=== PATIENT | female | born 1945 | race Caucasian/White ===

== ENCOUNTER 2016-04-20 08:15 | Outpatient (RCR) | payer MEDICARE, BC ==
[2016-03-14 10:44] VITALS: BP 156/75
[~2016-04-20 08:15] MED LIST: AMBIEN10 MG; AMLOPIDINE PO; ATIVAN 0.50.5 MG/TAB PO; BUPROPION300 MG PO; CALCIUM WITH D1 CTB PO; CEFTIN500 MG PO; CIPRO250 M1 PO; COGENTIN0.5 MG PO; GABAPENTIN100 M1 PO; INDERAL10 MG PO; LEADER MELATONIN5 MG PO; LEXAPRO5 MG PO; LITHIUM 30300 MG/CAP PO; LITHIUM CA150 MG/CAP PO; LITHIUM CARBON450 MG PO; MELOXICAM15 MG PO; NEURONTIN100 M1 PO; NEXIUM 20MG CAP20 MG PO; OMEGA-31000 MG PO; PAIN RELIEVER650 MG PO; PREDNISONE20 M1 PO; PROTONIX TR40 M1 PO; PROZAC40 MG PO; RISPERDAL 1M1 MG/TAB PO; RISPERDAL1 MG PO; SEROQUEL50 MG PO; SYNTHROID0.1 MG PO; VITAMIN D31000 I1 PO; WELLBUTRIN XL150 MG PO; WELLBUTRIN100 MG PO; ZOFRAN ODT4 MG PO
== END 2016-05-18 13:11 ==
LOC: OPPGERO 08:15
DX: F42.9 Obsessive-compulsive disorder, unspecified (principal); F41.1 Generalized anxiety disorder; F31.9 Bipolar disorder, unspecified

== ENCOUNTER 2016-05-19 08:34 | Outpatient (RCR) | payer MEDICARE, BC ==
[2016-03-14 10:44] VITALS: BP 156/75
== END 2016-06-15 10:19 ==
LOC: OPPGERO 08:34
DX: F42.9 Obsessive-compulsive disorder, unspecified (principal); F41.1 Generalized anxiety disorder; F31.9 Bipolar disorder, unspecified

== ENCOUNTER → 2016-05-26 | Outpatient (CLI) | payer MEDICARE, BC ==
[~2016-05-26] MED LIST changes: +CARAFATE 1GM1 G PO; +MECLIZINE PO
== END ==
LOC: MAMMO 13:38
DX: Z12.31 Encounter for screening mammogram for malignant neoplasm of breast (principal)
CPT/HCPCS: G0202

== ENCOUNTER → 2016-06-10 | Outpatient (CLI) | payer MEDICARE, BC | LOC: MAMMO 13:26 | DX: N63 Unspecified lump in breast (principal) ==

== ENCOUNTER 2016-06-16 07:12 | Outpatient (RCR) | payer MEDICARE, BC ==
[2016-03-14 10:44] VITALS: BP 156/75
[~2016-06-16 07:12] MED LIST changes: -CARAFATE 1GM1 G PO; -MECLIZINE PO
== END 2016-07-16 15:01 ==
LOC: OPPGERO 07:12
DX: F42.9 Obsessive-compulsive disorder, unspecified (principal); F41.1 Generalized anxiety disorder; F31.9 Bipolar disorder, unspecified

== ENCOUNTER → 2016-07-10 | Outpatient (CLI) | payer MEDICARE, BC ==
[~2016-07-10] MED LIST changes: +CARAFATE 1GM1 G PO; +MECLIZINE PO
== END ==
LOC: LAB 10:11
DX: Z00.00 Encounter for general adult medical examination without abnormal findings (principal); E03.4 Atrophy of thyroid (acquired); I51.9 Heart disease, unspecified; Z13.220 Encounter for screening for lipoid disorders

== ENCOUNTER 2016-07-17 09:00 | Outpatient (RCR) | payer MEDICARE, BC ==
[2016-03-14 10:44] VITALS: BP 156/75
[~2016-07-17 09:00] MED LIST changes: -CARAFATE 1GM1 G PO; -MECLIZINE PO
== END 2016-08-13 15:26 | disposition still patient (30) ==
LOC: OPPGERO 09:00
DX: F42.9 Obsessive-compulsive disorder, unspecified (principal); F41.1 Generalized anxiety disorder; F31.9 Bipolar disorder, unspecified

== ENCOUNTER → 2016-07-23 | Outpatient (CLI) | payer MEDICARE, BC ==
[~2016-07-23] MED LIST changes: +CARAFATE 1GM1 G PO; +MECLIZINE PO
== END ==
LOC: LAB 12:59
DX: R53.1 Weakness (principal)

== ENCOUNTER → 2016-07-26 | Outpatient (CLI) | payer MEDICARE, BC ==
[2016-03-14 10:44] VITALS: BP 156/75
== END ==
LOC: LAB 12:46
DX: R53.1 Weakness (principal)

== ENCOUNTER 2016-08-16 08:08 | Outpatient (RCR) | payer MEDICARE, BC ==
[2016-03-14 10:44] VITALS: BP 156/75
[~2016-08-16 08:08] MED LIST changes: -CARAFATE 1GM1 G PO; -MECLIZINE PO
== END 2016-09-15 16:47 ==
LOC: OPPGERO 08:08
DX: F42.9 Obsessive-compulsive disorder, unspecified (principal); F41.1 Generalized anxiety disorder; F31.9 Bipolar disorder, unspecified

== ENCOUNTER 2016-09-16 11:01 | Outpatient (RCR) | payer MEDICARE, BC ==
[2016-03-14 10:44] VITALS: BP 156/75
== END 2016-10-15 15:44 ==
LOC: OPPGERO 11:01
DX: F42.9 Obsessive-compulsive disorder, unspecified (principal); F41.1 Generalized anxiety disorder; F31.9 Bipolar disorder, unspecified

== ENCOUNTER → 2016-10-06 | Outpatient (CLI) | payer MEDICARE, BC ==
[2016-03-14 10:44] VITALS: BP 156/75
[~2016-10-06] MED LIST changes: +CARAFATE 1GM1 G PO; +MECLIZINE PO
== END ==
LOC: RAD 15:08
DX: R07.81 Pleurodynia (principal); M25.531 Pain in right wrist; M25.561 Pain in right knee; R91.8 Other nonspecific abnormal finding of lung field; M17.11 Unilateral primary osteoarthritis, right knee

== ENCOUNTER 2016-10-18 08:27 | Outpatient (RCR) | payer MEDICARE, BC ==
[2016-03-14 10:44] VITALS: BP 156/75
[~2016-10-18 08:27] MED LIST changes: -CARAFATE 1GM1 G PO; -MECLIZINE PO
[2016-11-08] MEDS ORDERED: CARAFATE 1GM1 G PO (14:00)
[2016-11-08] MEDS ORDERED: MECLIZINE PO (16:10)
== END 2016-11-15 14:58 | disposition still patient (30) ==
LOC: OPPGERO 08:27
DX: F42.9 Obsessive-compulsive disorder, unspecified (principal); F41.1 Generalized anxiety disorder; F31.9 Bipolar disorder, unspecified

== ENCOUNTER 2016-11-08 12:33 | Emergency (ER) | payer MEDICARE, BC ==
[~2016-11-08] VITALS: Wt 80.5 kg
[2016-11-08] MEDS ORDERED: CARAFATE 1GM1 G PO (14:00)
[2016-11-08] MEDS ORDERED: MECLIZINE PO (16:10)
[2016-11-08 16:36] VITALS: BP 166/82
== END 2016-11-08 16:41 | disposition home or self-care (01) ==
LOC: ED 12:33
DX: H81.10 Benign paroxysmal vertigo, unspecified ear (principal); E86.0 Dehydration; R42 Dizziness and giddiness; I10 Essential (primary) hypertension; F41.9 Anxiety disorder, unspecified; F32.9 Major depressive disorder, single episode, unspecified
CPT/HCPCS: J7030; J7120

== ENCOUNTER 2016-11-16 08:42 | Outpatient (RCR) | payer MEDICARE, BC ==
[~2016-11-16 08:42] MED LIST changes: +CARAFATE 1GM1 G PO; +MECLIZINE PO
== END 2016-12-16 14:29 | disposition still patient (30) ==
LOC: OPPGERO 08:42
DX: F42.9 Obsessive-compulsive disorder, unspecified (principal); F41.1 Generalized anxiety disorder; F31.9 Bipolar disorder, unspecified

== ENCOUNTER → 2016-11-29 | Outpatient (CLI) | payer MEDICARE, BC ==
[2016-11-08 16:36] VITALS: BP 166/82
== END ==
LOC: RAD 13:00
DX: D32.9 Benign neoplasm of meninges, unspecified (principal)
CPT/HCPCS: A9585

== ENCOUNTER 2016-12-17 07:49 | Outpatient (RCR) | payer MEDICARE, BC | END 2017-01-14 15:12 | LOC: OPPGERO 07:49 | DX: F42.9 Obsessive-compulsive disorder, unspecified (principal); F41.1 Generalized anxiety disorder; F31.9 Bipolar disorder, unspecified ==

== ENCOUNTER → 2017-01-05 | Outpatient (CLI) | payer MEDICARE, BC | LOC: RAD 12:36 | DX: J98.11 Atelectasis (principal) ==

== ENCOUNTER 2017-01-09 11:48 | Emergency (ER) | payer MEDICARE, BC ==
[~2017-01-09] VITALS: Ht 172.7 cm; Wt 77.3 kg
[2017-01-09 12:43] VITALS: BP 136/72
== END 2017-01-09 12:32 | disposition home or self-care (01) ==
LOC: ED 11:48
DX: S51.812A Laceration without foreign body of left forearm, initial encounter (principal); W19.XXXA Unspecified fall, initial encounter; Y92.22 Religious institution as the place of occurrence of the external cause; F31.9 Bipolar disorder, unspecified; I10 Essential (primary) hypertension
CPT/HCPCS: 90715

== ENCOUNTER → 2017-01-11 | Outpatient (CLI) | payer MEDICARE, BC ==
[2017-01-09 12:43] VITALS: BP 136/72
== END ==
LOC: RAD 12:25
DX: R91.8 Other nonspecific abnormal finding of lung field (principal)
CPT/HCPCS: Q9967

== ENCOUNTER 2017-01-16 09:00 | Outpatient (RCR) | payer MEDICARE, BC | END 2017-02-15 16:14 | LOC: OPPGERO 09:00 | DX: F42.9 Obsessive-compulsive disorder, unspecified (principal); F41.1 Generalized anxiety disorder; F31.9 Bipolar disorder, unspecified ==

== ENCOUNTER 2017-02-16 08:37 | Outpatient (RCR) | payer MEDICARE, BC | END 2017-03-17 13:02 | LOC: OPPGERO 08:37 | DX: F42.9 Obsessive-compulsive disorder, unspecified (principal); F41.1 Generalized anxiety disorder; F31.9 Bipolar disorder, unspecified ==

== ENCOUNTER → 2017-06-21 | Outpatient (CLI) | payer MEDICARE, BC ==
[2017-06-21 11:08] LABS: ALBUMIN 3.9 g/dL (3.5-5.0); BUN/CREATININE RATIO 17.1 (6.0-26.0); CALCIUM 9.6 mg/dL (8.4-10.2); POTASSIUM 4.3 mmol/L (3.6-5.0); TOTAL BILIRUBIN 0.5 mg/dL (0.2-1.3); TOTAL PROTEIN 6.8 g/dL (6.3-8.2)
== END ==
LOC: LAB 10:32
PROVIDERS: Family Medicine
DX: Z51.81 Encounter for therapeutic drug level monitoring (principal); Z79.899 Other long term (current) drug therapy

== ENCOUNTER 2017-07-20 11:37 | Emergency (ER) | payer MEDICARE, BC ==
[~2017-07-20] VITALS: Ht 172.7 cm; Wt 80.0 kg
[~2017-07-20 11:37] MED LIST changes: +LEXAPRO20 M1 PO; -LEXAPRO5 MG PO; -LITHIUM CA150 MG/CAP PO; +LITHIUM CARB300 MG PO; -SYNTHROID0.1 MG PO; +SYNTHROID112 MCG PO
[2017-07-20 12:35] LABS: EOS # 0.2 (0.04-0.40); EOS % 2.4 % (1.0-5.0); HEMATOCRIT 41.7 % (37.0-47.0); HEMOGLOBIN 12.6 g/dL (12.5-16.0); LYMPH# 1.7 (1.50-4.00); MEAN CELL VOLUME 94 fl (78-100); MEAN CORPUSCULAR HEMOGLOBIN 28 pg (27-31); MEAN CORPUSCULAR HGB CONC 30 g/dL (33-37); MEAN PLATELET VOLUME 9.6 fl (7.4-10.4); MONO # 0.6 (0.20-0.80); NEU # 5.1 (1.40-6.50); PLATELET COUNT 298 K/mm3 (130-400); RED BLOOD COUNT 4.44 M/mm3 (4.10-5.30); RED CELL DISTRIBUTION WIDTH 13.4 % (11.5-14.5); WHITE BLOOD COUNT 7.6 K/mm3 (4.8-10.8)
[2017-07-20] MEDS ORDERED: WELLBUTRIN XL150 M2 PO (12:49)
[2017-07-20 12:50] LABS: ALBUMIN 3.8 g/dL (3.5-5.0); ALT/SGPT 30 U/L (9-52); AST-SGOT 37 U/L (14-36); BUN/CREATININE RATIO 22.7 (6.0-26.0); CALCIUM 9.6 mg/dL (8.4-10.2); CARBON DIOXIDE 32 mmol/L (22-30); GLUCOSE 112 mg/dL (65-105); PARTIAL THROMBOPLASTIN TIME 22.7 SECONDS (21.0-32.0); POTASSIUM 4.4 mmol/L (3.6-5.0); PROTHROMBIN TIME 9.3 SECONDS (9.0-12.0); SODIUM 146 mmol/L (137-145); TOTAL BILIRUBIN 0.5 mg/dL (0.2-1.3); TOTAL PROTEIN 6.9 g/dL (6.3-8.2)
[2017-07-20 13:59] LABS: URINE APPEARANCE HAZY; URINE BILIRUBIN NEGATIVE (NEGATIVE); URINE BLOOD NEGATIVE (NEGATIVE); URINE COLOR YELLOW; URINE GLUCOSE NEGATIVE (NEGATIVE); URINE KETONE NEGATIVE (NEGATIVE); URINE LEUKOCYTE ESTERASE 1+ (NEGATIVE); URINE MUCUS PRESENT (NOT PRESENT); URINE NITRATE NEGATIVE (NEGATIVE); URINE PROTEIN(semi-quant) TRACE mg/dL (NEGATIVE); URINE UROBILINOGEN NORMAL (NORMAL); URINE WBC 16-30 /hpf (0-3)
[2017-07-20 15:06] VITALS: BP 159/74
== END 2017-07-20 15:20 | disposition home or self-care (01) ==
LOC: ED 11:37
PROVIDERS: Nurse Practitioner
DX: R53.81 Other malaise (principal); R51 Headache; I10 Essential (primary) hypertension; F32.9 Major depressive disorder, single episode, unspecified; F41.9 Anxiety disorder, unspecified; E03.9 Hypothyroidism, unspecified; Z87.891 Personal history of nicotine dependence; G47.00 Insomnia, unspecified

== ENCOUNTER 2017-08-21 18:57 | Emergency (ER) | payer MEDICARE, BC ==
[~2017-08-21] VITALS: Ht 172.7 cm; Wt 77.3 kg
[~2017-08-21 18:57] MED LIST changes: +WELLBUTRIN XL150 M2 PO
[2017-08-21 19:02] VITALS: BP 161/84
[2017-08-21] MEDS ORDERED: PANTOPRAZOLE SO20 M1 PO (20:08)
[2017-08-21] MEDS ORDERED: NYSTATIN UD5 ML/CUP PO (20:08)
== END 2017-08-21 20:28 | disposition home or self-care (01) ==
LOC: ED 18:57
DX: K14.6 Glossodynia (principal); R13.10 Dysphagia, unspecified; F31.9 Bipolar disorder, unspecified; F41.9 Anxiety disorder, unspecified

== ENCOUNTER 2017-09-06 09:27 | Outpatient (RCR) | payer MEDICARE, BC ==
[~2017-09-06 09:27] MED LIST changes: +NYSTATIN UD5 ML/CUP PO; +PANTOPRAZOLE SO20 M1 PO
== END 2017-09-15 13:31 ==
LOC: OPPGERO 09:27
DX: F32.1 Major depressive disorder, single episode, moderate (principal); F42.9 Obsessive-compulsive disorder, unspecified; F41.1 Generalized anxiety disorder; E03.9 Hypothyroidism, unspecified; G62.9 Polyneuropathy, unspecified; G47.00 Insomnia, unspecified; D32.0 Benign neoplasm of cerebral meninges; Z79.899 Other long term (current) drug therapy

== ENCOUNTER 2017-09-16 08:07 | Outpatient (RCR) | payer MEDICARE, BC | END 2017-10-14 13:03 | LOC: OPPGERO 08:07 | DX: F32.1 Major depressive disorder, single episode, moderate (principal); F42.9 Obsessive-compulsive disorder, unspecified; F41.1 Generalized anxiety disorder; D32.0 Benign neoplasm of cerebral meninges; Z59.6 Low income; Z63.79 Other stressful life events affecting family and household ==

== ENCOUNTER 2017-10-17 09:13 | Outpatient (RCR) | payer MEDICARE, BC | END 2017-11-15 14:15 | disposition home or self-care (01) | LOC: OPPGERO 09:13 | DX: F32.1 Major depressive disorder, single episode, moderate (principal); F41.1 Generalized anxiety disorder; F42.9 Obsessive-compulsive disorder, unspecified; Z63.79 Other stressful life events affecting family and household; Z86.59 Personal history of other mental and behavioral disorders ==

== ENCOUNTER 2017-11-16 08:24 | Outpatient (RCR) | payer MEDICARE, BC ==
[2017-11-18] MEDS ORDERED: PROTONIX TR40 M1 PO (20:55)
[2017-11-18] MEDS ORDERED: SEROQUEL 1100 MG/TAB PO (20:56)
[2017-11-18] MEDS ORDERED: SERTRALINE HYD100 MG PO (20:56)
== END 2017-12-16 13:56 ==
LOC: OPPGERO 08:24
DX: F32.1 Major depressive disorder, single episode, moderate (principal); F42.9 Obsessive-compulsive disorder, unspecified; F41.1 Generalized anxiety disorder; Z59.8 Other problems related to housing and economic circumstances; Z59.9 Problem related to housing and economic circumstances, unspecified; Z86.59 Personal history of other mental and behavioral disorders; D32.0 Benign neoplasm of cerebral meninges; E03.9 Hypothyroidism, unspecified; K21.9 Gastro-esophageal reflux disease without esophagitis; G62.9 Polyneuropathy, unspecified; Z79.899 Other long term (current) drug therapy

== ENCOUNTER 2017-11-18 20:37 | Emergency (ER) | payer MEDICARE, BC ==
[~2017-11-18] VITALS: Ht 172.7 cm; Wt 76.8 kg
[2017-11-18] MEDS ORDERED: PROTONIX TR40 M1 PO (20:55)
[2017-11-18] MEDS ORDERED: SERTRALINE HYD100 MG PO (20:56)
[2017-11-18] MEDS ORDERED: SEROQUEL 1100 MG/TAB PO (20:56)
[2017-11-18 21:45] VITALS: BP 150/82
== END 2017-11-18 21:45 | disposition home or self-care (01) ==
LOC: ED 20:37
DX: F41.8 Other specified anxiety disorders (principal)

== ENCOUNTER → 2017-11-28 | Outpatient (CLI) | payer MEDICARE, BC ==
[2017-11-18 21:45] VITALS: BP 150/82
[~2017-11-28] MED LIST changes: +SEROQUEL 1100 MG/TAB PO; +SERTRALINE HYD100 MG PO
== END ==
LOC: RAD 15:00 → LAB 16:59
DX: D32.0 Benign neoplasm of cerebral meninges (principal)
CPT/HCPCS: A9585

== ENCOUNTER → 2017-12-08 | Outpatient (CLI) | payer MEDICARE, BC ==
[2017-11-18 21:45] VITALS: BP 150/82
== END ==
LOC: RAD 12:29 → LAB 12:29
PROVIDERS: Otolaryngology
DX: H93.A2 Pulsatile tinnitus, left ear (principal)

== ENCOUNTER → 2017-12-09 | Outpatient (CLI) | payer MEDICARE, BC ==
[2017-11-18 21:45] VITALS: BP 150/82
== END ==
LOC: RAD 12:15
DX: H93.A2 Pulsatile tinnitus, left ear (principal)
CPT/HCPCS: Q9967

== ENCOUNTER → 2017-12-14 | Outpatient (CLI) | payer MEDICARE, BC ==
[2017-11-18 21:45] VITALS: BP 150/82
== END ==
LOC: MAMMO 13:00
DX: Z12.31 Encounter for screening mammogram for malignant neoplasm of breast (principal)

== ENCOUNTER → 2018-01-18 | Outpatient (CLI) | payer MEDICARE, BC | LOC: LAB 08:24 | DX: Z51.81 Encounter for therapeutic drug level monitoring (principal); Z79.899 Other long term (current) drug therapy ==

== ENCOUNTER 2018-04-06 08:30 | Outpatient (RCR) | payer MEDICARE, BC | END 2018-04-06 09:00 | disposition home or self-care (01) | LOC: PT 08:30 | DX: R29.898 Other symptoms and signs involving the musculoskeletal system (principal); M54.5 Low back pain; G89.29 Other chronic pain | CPT/HCPCS: G8978-GP; G8979-GP ==

== ENCOUNTER 2018-05-19 16:13 | Emergency (ER) | payer MEDICARE, BC ==
[~2018-05-19] VITALS: Ht 172.7 cm; Wt 77.3 kg
[2018-05-19 16:56] LABS: EOS # 0.2 (0.04-0.40); EOS % 2.3 % (1.0-5.0); HEMATOCRIT 40.3 % (37.0-47.0); HEMOGLOBIN 11.9 g/dL (12.5-16.0); LYMPH# 1.5 (1.50-4.00); MEAN CELL VOLUME 91 fl (78-100); MEAN CORPUSCULAR HEMOGLOBIN 27 pg (27-31); MEAN CORPUSCULAR HGB CONC 30 g/dL (33-37); MEAN PLATELET VOLUME 9.4 fl (7.4-10.4); MONO # 0.5 (0.20-0.80); NEU # 4.8 (1.40-6.50); PLATELET COUNT 277 K/mm3 (130-400); RED BLOOD COUNT 4.42 M/mm3 (4.10-5.30); RED CELL DISTRIBUTION WIDTH 13.5 % (11.5-14.5)
[2018-05-19 17:41] LABS: ALBUMIN 4.1 g/dL (3.5-5.0); AST-SGOT 38 U/L (14-36); CALCIUM 9.6 mg/dL (8.4-10.2); CARBON DIOXIDE 31 mmol/L (22-30); GLUCOSE 111 mg/dL (65-105); POTASSIUM 4.1 mmol/L (3.6-5.0); SODIUM 141 mmol/L (137-145); TOTAL BILIRUBIN 0.4 mg/dL (0.2-1.3); TOTAL PROTEIN 6.7 g/dL (6.3-8.2)
[2018-05-19 17:44] LABS: ALT/SGPT < 3 U/L (9-52)
[2018-05-19] MEDS ORDERED: TIROSINT75 MC1 PO (18:20)
[2018-05-19] MEDS ORDERED: WELLBUTRIN XL150 M2 (18:21)
[2018-05-19] MEDS ORDERED: VALIUM 2MG T2 MG/TAB PO (18:21)
[2018-05-19] MEDS ORDERED: WELLBUTRIN XL150 M2 PO (18:22)
[2018-05-19 19:00] VITALS: BP 158/76
== END 2018-05-19 19:06 | disposition home or self-care (01) ==
LOC: ED 16:13
PROVIDERS: Nurse Practitioner Primary Care
DX: M94.0 Chondrocostal junction syndrome [Tietze] (principal); J69.0 Pneumonitis due to inhalation of food and vomit; K21.9 Gastro-esophageal reflux disease without esophagitis; F41.9 Anxiety disorder, unspecified; F31.9 Bipolar disorder, unspecified; Z98.51 Tubal ligation status; Z90.49 Acquired absence of other specified parts of digestive tract

== ENCOUNTER → 2018-07-31 | Outpatient (CLI) | payer MEDICARE, BC ==
[~2018-07-31] MED LIST changes: +TIROSINT75 MC1 PO; +VALIUM 2MG T2 MG/TAB PO; +WELLBUTRIN XL150 M2
== END ==
LOC: RAD 16:50
DX: M47.817 Spondylosis without myelopathy or radiculopathy, lumbosacral region (principal); M43.8X6 Other specified deforming dorsopathies, lumbar region; M51.26 Other intervertebral disc displacement, lumbar region; M51.36 Other intervertebral disc degeneration, lumbar region

== ENCOUNTER → 2018-08-22 | Outpatient (CLI) | payer MEDICARE, BC ==
[2018-08-22 13:05] LABS: HEMATOCRIT 43.3 % (37.0-47.0); HEMOGLOBIN 13.1 g/dL (12.5-16.0); MEAN PLATELET VOLUME 9.1 fl (7.4-10.4); RED BLOOD COUNT 4.83 M/mm3 (4.10-5.30); WHITE BLOOD COUNT 8.6 K/mm3 (4.8-10.8)
[2018-08-22 15:05] LABS: ALBUMIN 4.5 g/dL (3.4-4.8); CALCIUM 10.4 mg/dL (8.4-10.2); POTASSIUM 4.7 mmol/L (3.5-5.1); TOTAL BILIRUBIN 0.5 mg/dL (0.2-1.2); TOTAL PROTEIN 7.1 g/dL (6.2-8.1)
== END ==
LOC: LAB 12:51
DX: Z79.899 Other long term (current) drug therapy (principal)

== ENCOUNTER → 2018-09-04 | Outpatient (CLI) | payer MEDICARE, BC ==
[2018-09-04 12:28] LABS: EOS # 0.3 (0.04-0.40); EOS % 3.3 % (1.0-5.0); HEMATOCRIT 44.6 % (37.0-47.0); HEMOGLOBIN 13.2 g/dL (12.5-16.0); LYMPH# 1.7 (1.50-4.00); MEAN CELL VOLUME 90 fl (78-100); MEAN CORPUSCULAR HEMOGLOBIN 27 pg (27-31); MEAN CORPUSCULAR HGB CONC 30 g/dL (33-37); MEAN PLATELET VOLUME 9.4 fl (7.4-10.4); MONO # 0.5 (0.20-0.80); PLATELET COUNT 264 K/mm3 (130-400); RED BLOOD COUNT 4.94 M/mm3 (4.10-5.30); RED CELL DISTRIBUTION WIDTH 14.2 % (11.5-14.5); WHITE BLOOD COUNT 7.5 K/mm3 (4.8-10.8)
[2018-09-04 13:10] LABS: ALBUMIN 4.4 g/dL (3.4-4.8); CALCIUM 10.3 mg/dL (8.4-10.2); POTASSIUM 4.7 mmol/L (3.5-5.1); TOTAL BILIRUBIN 0.4 mg/dL (0.2-1.2)
== END ==
LOC: LAB 10:59
PROVIDERS: Family Medicine
DX: E03.9 Hypothyroidism, unspecified (principal); R73.9 Hyperglycemia, unspecified; E55.9 Vitamin D deficiency, unspecified; E66.3 Overweight

== ENCOUNTER 2018-10-17 14:30 | Outpatient (RCR) | payer MEDICARE, BC | END 2018-10-17 15:00 | disposition still patient (30) | LOC: PT 14:30 | DX: M99.73 Connective tissue and disc stenosis of intervertebral foramina of lumbar region (principal); M41.80 Other forms of scoliosis, site unspecified; M54.16 Radiculopathy, lumbar region; M21.42 Flat foot [pes planus] (acquired), left foot ==

== ENCOUNTER → 2018-11-17 | Outpatient (CLI) | payer MEDICARE, BC | LOC: RAD 12:14 | DX: R41.82 Altered mental status, unspecified (principal); R51 Headache ==

== ENCOUNTER → 2019-06-26 | Outpatient (CLI) | payer MEDICARE, BC ==
[2018-12-18 15:00] VITALS: BP 173/78
[~2019-06-26] MED LIST changes: +CENTRUM CHEWAB1 EAC2 PO; +DULOXETINE30 MG PO; +LEVOTHYROXINE112 MCG PO; +LITHIUM CARBON300 M3 PO; +NEURONTIN300 MG/CAP; +OMEPRAZOLE40 MG PO; +PANTOPRAZOLE SO40 MG PO; +PROPRANOLOL ER80 MG PO; +QUETIAPINE FUM200 M1 PO
== END ==
LOC: RAD 08:00
PROVIDERS: Psychiatry & Neurology Vascular Neurology
DX: I67.82 Cerebral ischemia (principal); G20 Parkinson's disease; G31.9 Degenerative disease of nervous system, unspecified; D32.0 Benign neoplasm of cerebral meninges
CPT/HCPCS: A9585

== ENCOUNTER 2019-07-18 07:53 | Outpatient (RCR) | payer MEDICARE, BC ==
[2018-12-18 15:00] VITALS: BP 173/78
[~2019-07-18 07:53] MED LIST changes: -CENTRUM CHEWAB1 EAC2 PO; +DAILY VALUE1 EACH PO; +NEURONTIN300 M1 PO; -QUETIAPINE FUM200 M1 PO
[2019-08-08] MEDS ORDERED: NEURONTIN300 M1 PO (10:27)
[2019-08-08] MEDS ORDERED: LEVOTHYROXIN0.088 MG PO (10:29)
[2019-08-08] MEDS ORDERED: CARBIDOPA/LEVOD1 TAB PO (10:30)
[2019-08-08] MEDS ORDERED: AMLODIPINE BESYL5 MG PO (10:30)
[2019-08-08] MEDS ORDERED: ALPRAZOLAM0.25 MG PO (10:32)
[2019-08-08] MEDS ORDERED: DIFLUCAN150 M1 PO (13:17)
== END 2019-08-16 15:55 | disposition still patient (30) ==
LOC: OPPGERO 07:53
DX: F31.4 Bipolar disorder, current episode depressed, severe, without psychotic features (principal); T74.31XA Adult psychological abuse, confirmed, initial encounter; E03.9 Hypothyroidism, unspecified; M17.12 Unilateral primary osteoarthritis, left knee; Z63.0 Problems in relationship with spouse or partner; Z63.32 Other absence of family member; Z79.52 Long term (current) use of systemic steroids; Z79.899 Other long term (current) drug therapy; Z86.011 Personal history of benign neoplasm of the brain

== ENCOUNTER 2019-08-17 08:13 | Outpatient (RCR) | payer MEDICARE, BC ==
[2019-08-08 13:26] VITALS: BP 106/79
[~2019-08-17 08:13] MED LIST changes: +ALPRAZOLAM0.25 MG PO; +AMLODIPINE BESYL5 MG PO; +CARBIDOPA/LEVOD1 TAB PO; +DIFLUCAN150 M1 PO; +LEVOTHYROXIN0.088 MG PO
== END 2019-09-14 15:05 | disposition still patient (30) ==
LOC: OPPGERO 08:13
DX: F31.4 Bipolar disorder, current episode depressed, severe, without psychotic features (principal); T74.31XA Adult psychological abuse, confirmed, initial encounter; F41.9 Anxiety disorder, unspecified; E03.9 Hypothyroidism, unspecified; M17.12 Unilateral primary osteoarthritis, left knee; G20 Parkinson's disease; G62.9 Polyneuropathy, unspecified; Z63.0 Problems in relationship with spouse or partner; Z63.32 Other absence of family member; Z79.51 Long term (current) use of inhaled steroids; Z79.899 Other long term (current) drug therapy; Z86.011 Personal history of benign neoplasm of the brain; Z87.891 Personal history of nicotine dependence

== ENCOUNTER 2019-09-17 09:06 | Outpatient (RCR) | payer MEDICARE, BC ==
[2019-08-08 13:26] VITALS: BP 106/79
[2019-09-22] MEDS ORDERED: OMEPRAZOLE40 MG PO (10:56)
[2019-09-22] MEDS ORDERED: LAMOTRIGINE25 M1 PO (10:56)
[2019-09-22] MEDS ORDERED: COLACE100 M1 PO (13:00)
[2019-09-22] MEDS ORDERED: MIRALAX17 GM PO (13:00)
== END 2019-10-16 16:07 | disposition still patient (30) ==
LOC: OPPGERO 09:06
DX: F31.4 Bipolar disorder, current episode depressed, severe, without psychotic features (principal); T74.11XA Adult physical abuse, confirmed, initial encounter; E03.9 Hypothyroidism, unspecified; M17.12 Unilateral primary osteoarthritis, left knee; Z63.0 Problems in relationship with spouse or partner; Z63.4 Disappearance and death of family member; Z79.51 Long term (current) use of inhaled steroids; Z79.899 Other long term (current) drug therapy

== ENCOUNTER → 2019-09-28 | Outpatient (CLI) | payer MEDICARE, BC ==
[2019-09-22 13:04] VITALS: BP 136/84
[~2019-09-28] MED LIST changes: +COLACE100 M1 PO; +LAMOTRIGINE25 M1 PO; +MIRALAX17 GM PO
== END ==
LOC: RAD 12:36
DX: R10.9 Unspecified abdominal pain (principal)

== ENCOUNTER 2019-10-17 10:28 | Outpatient (RCR) | payer MEDICARE, BC ==
[2019-09-22 13:04] VITALS: BP 136/84
== END 2019-11-16 14:11 ==
LOC: OPPGERO 10:28
DX: F31.4 Bipolar disorder, current episode depressed, severe, without psychotic features (principal); T74.11XA Adult physical abuse, confirmed, initial encounter; R45.82 Worries; E03.9 Hypothyroidism, unspecified; Z63.0 Problems in relationship with spouse or partner; Z63.4 Disappearance and death of family member; Z79.51 Long term (current) use of inhaled steroids; Z79.899 Other long term (current) drug therapy; Z87.891 Personal history of nicotine dependence

== ENCOUNTER 2019-11-10 11:13 | Emergency (ER) | payer MEDICARE, BC ==
[~2019-11-10] VITALS: Ht 172.7 cm; Wt 76.4 kg
[2019-11-10 14:42] VITALS: BP 151/74
== END 2019-11-10 14:52 | disposition home or self-care (01) ==
LOC: ED 11:13
DX: S92.302A Fracture of unspecified metatarsal bone(s), left foot, initial encounter for closed fracture (principal); S00.12XA Contusion of left eyelid and periocular area, initial encounter; M25.512 Pain in left shoulder; W19.XXXA Unspecified fall, initial encounter
CPT/HCPCS: 15969; L4386

== ENCOUNTER 2019-11-19 08:36 | Outpatient (RCR) | payer MEDICARE, BC | END 2019-12-17 16:11 | disposition home or self-care (01) | LOC: OPPGERO 08:36 | DX: F31.9 Bipolar disorder, unspecified (principal); Z63.4 Disappearance and death of family member; Z87.891 Personal history of nicotine dependence ==

== ENCOUNTER → 2019-11-26 | Outpatient (CLI) | payer MEDICARE, BC ==
[2019-11-10 14:42] VITALS: BP 151/74
== END ==
LOC: RAD 12:49
DX: S92.352D Displaced fracture of fifth metatarsal bone, left foot, subsequent encounter for fracture with routine healing (principal)

== ENCOUNTER 2019-12-18 09:19 | Outpatient (RCR) | payer MEDICARE, BC | END 2020-01-16 17:03 | disposition still patient (30) | LOC: OPPGERO 09:19 | DX: F31.4 Bipolar disorder, current episode depressed, severe, without psychotic features (principal); T74.31XA Adult psychological abuse, confirmed, initial encounter; F41.9 Anxiety disorder, unspecified; E03.9 Hypothyroidism, unspecified; M17.12 Unilateral primary osteoarthritis, left knee; Z63.4 Disappearance and death of family member; Z79.51 Long term (current) use of inhaled steroids; Z79.899 Other long term (current) drug therapy ==

== ENCOUNTER 2020-01-17 14:25 | Outpatient (RCR) | payer MEDICARE, BC | END 2020-02-15 14:28 | LOC: OPPGERO 14:25 | DX: F31.4 Bipolar disorder, current episode depressed, severe, without psychotic features (principal); E03.9 Hypothyroidism, unspecified; M17.12 Unilateral primary osteoarthritis, left knee; Z63.4 Disappearance and death of family member; Z79.51 Long term (current) use of inhaled steroids; Z79.899 Other long term (current) drug therapy ==

== ENCOUNTER 2020-02-18 08:53 | Outpatient (RCR) | payer MEDICARE, BC ==
[2020-02-20] MEDS ORDERED: NEURONTIN300 MG/CAP (20:58)
[2020-02-20] MEDS ORDERED: WELLBUTRIN SR100 M3 PO (21:00)
[2020-02-20] MEDS ORDERED: QUETIAPINE FUM100 M1 PO (21:03)
[2020-02-20] MEDS ORDERED: ATORVASTATIN CA20 MG PO (21:05)
[2020-02-20] MEDS ORDERED: DULOXETINE60 MG PO (21:10)
[2020-02-20] MEDS ORDERED: TRAMADOL 50 MG TAB PO (21:11)
[2020-02-20] MEDS ORDERED: SENNA LAX8.6 M1 PO (21:13)
== END 2020-03-17 16:11 | disposition home or self-care (01) ==
LOC: OPPGERO 08:53
DX: F31.9 Bipolar disorder, unspecified (principal); F41.9 Anxiety disorder, unspecified; F22 Delusional disorders; D33.2 Benign neoplasm of brain, unspecified; E03.9 Hypothyroidism, unspecified; M17.12 Unilateral primary osteoarthritis, left knee; K25.9 Gastric ulcer, unspecified as acute or chronic, without hemorrhage or perforation; Z63.4 Disappearance and death of family member; Z86.79 Personal history of other diseases of the circulatory system; Z79.899 Other long term (current) drug therapy; Z87.891 Personal history of nicotine dependence

== ENCOUNTER 2020-02-20 17:28 | Observation (INO) | payer MEDICARE, BC ==
[~2020-02-20] VITALS: Ht 172.7 cm; Wt 75.3 kg
[2020-02-20 18:05] LABS: EOS # 0.2 (0.04-0.40); EOS % 3.1 % (1.0-5.0); HEMATOCRIT 42.6 % (37.0-47.0); HEMOGLOBIN 12.9 g/dL (12.5-16.0); MEAN CELL VOLUME 92 fl (78-100); MEAN CORPUSCULAR HEMOGLOBIN 28 pg (27-31); MEAN CORPUSCULAR HGB CONC 30 g/dL (33-37); MEAN PLATELET VOLUME 9.2 fl (7.4-10.4); MONO # 0.4 (0.20-0.80); NEU # 3.2 (1.40-6.50); PLATELET COUNT 230 K/mm3 (130-400); RED BLOOD COUNT 4.65 M/mm3 (4.10-5.30); RED CELL DISTRIBUTION WIDTH 13.1 % (11.5-14.5); WHITE BLOOD COUNT 5.9 K/mm3 (4.8-10.8)
[2020-02-20 18:17] LABS: ALBUMIN 4.2 g/dL (3.4-4.8); POTASSIUM 4.3 mmol/L (3.5-5.1); SODIUM 141 mmol/L (136-145)
[2020-02-20 18:18] LABS: CALCIUM 9.1 mg/dL (8.3-10.5)
[2020-02-20 18:19] LABS: GLUCOSE 90 mg/dL (65-105)
[2020-02-20 18:20] LABS: CARBON DIOXIDE 24 mmol/L (23-31)
[2020-02-20 18:21] LABS: TOTAL BILIRUBIN 0.6 mg/dL (0.2-1.2)
[2020-02-20 18:24] LABS: AST-SGOT 16 U/L (5-34)
[2020-02-20 18:26] LABS: ALT/SGPT 7 U/L (0-55)
[2020-02-20 18:36] LABS: TROPONIN-I < 0.03 ng/mL (<0.030)
[2020-02-20 19:21] LABS: URINE APPEARANCE CLEAR; URINE BILIRUBIN NEGATIVE (NEGATIVE); URINE BLOOD NEGATIVE (NEGATIVE); URINE COLOR YELLOW; URINE GLUCOSE NEGATIVE (NEGATIVE); URINE KETONE NEGATIVE (NEGATIVE); URINE LEUKOCYTE ESTERASE TRACE (NEGATIVE); URINE MUCUS PRESENT (NOT PRESENT); URINE NITRATE NEGATIVE (NEGATIVE); URINE PROTEIN(semi-quant) TRACE mg/dL (NEGATIVE); URINE UROBILINOGEN NORMAL (NORMAL)
[2020-02-20 19:40] VITALS: BP 147/71
[2020-02-20 19:42] VITALS: BP 147/79
[2020-02-20 19:44] VITALS: BP 143/82
[2020-02-20 20:19] VITALS: BP 147/71
[2020-02-20 20:20] VITALS: BP 147/71
[2020-02-20] MEDS ORDERED: NEURONTIN300 MG/CAP (20:58)
[2020-02-20] MEDS ORDERED: WELLBUTRIN SR100 M3 PO (21:00)
[2020-02-20] MEDS ORDERED: QUETIAPINE FUM100 M1 PO (21:03)
[2020-02-20] MEDS ORDERED: ATORVASTATIN CA20 MG PO (21:05)
[2020-02-20] MEDS ORDERED: DULOXETINE60 MG PO (21:10)
[2020-02-20] MEDS ORDERED: TRAMADOL 50 MG TAB PO (21:11)
[2020-02-20] MEDS ORDERED: SENNA LAX8.6 M1 PO (21:13)
[2020-02-20 22:00] VITALS: BP 138/79
[2020-02-21 02:04] VITALS: BP 103/61
[2020-02-21 05:42] VITALS: BP 107/63
[2020-02-21 09:36] VITALS: BP 132/67
== END 2020-02-21 10:30 | disposition home or self-care (01) ==
LOC: ED 17:28 → MED/SURG 19:25
PROVIDERS: ADMIT Physician Assistant
DX: S00.03XA Contusion of scalp, initial encounter (principal); F41.9 Anxiety disorder, unspecified; R55 Syncope and collapse; I10 Essential (primary) hypertension; K21.9 Gastro-esophageal reflux disease without esophagitis; Z90.49 Acquired absence of other specified parts of digestive tract; Z87.891 Personal history of nicotine dependence; Z88.8 Allergy status to other drugs, medicaments and biological substances
CPT/HCPCS: G0378; L0172

== ENCOUNTER 2020-03-18 12:10 | Outpatient (RCR) | payer MEDICARE, BC ==
[~2020-03-18 12:10] MED LIST changes: +ATORVASTATIN CA20 MG PO; +DULOXETINE60 MG PO; +QUETIAPINE FUM100 M1 PO; +SENNA LAX8.6 M1 PO; +TRAMADOL 50 MG TAB PO; +WELLBUTRIN SR100 M3 PO
== END 2020-04-17 18:18 ==
LOC: OPPGERO 12:10
DX: F31.9 Bipolar disorder, unspecified (principal); F41.9 Anxiety disorder, unspecified; Z87.891 Personal history of nicotine dependence

== ENCOUNTER 2020-06-16 10:04 | Outpatient (RCR) | payer MEDICARE, BC | END 2020-06-28 16:30 | disposition home or self-care (01) | LOC: PT 10:04 | DX: M54.16 Radiculopathy, lumbar region (principal); K21.9 Gastro-esophageal reflux disease without esophagitis ==

== ENCOUNTER → 2021-03-05 | Outpatient (CLI) | payer MEDICARE, BC ==
[~2021-03-05] MED LIST changes: +AMLODIPINE BESY1 T14 PO; +APRESOLINE 25MG25 MG PO; +MORGIDOX 1X100100 MG PO; +PROVENTIL0.09 MG/A1 IH; +SEROQUEL XR150 MG PO
== END ==
LOC: AMSURD 11:16
DX: Z01.818 Encounter for other preprocedural examination (principal)

== ENCOUNTER 2021-03-16 18:36 | Emergency (ER) | payer MEDICARE, BC ==
[~2021-03-16 18:36] MED LIST changes: -AMLODIPINE BESY1 T14 PO; -APRESOLINE 25MG25 MG PO; -MORGIDOX 1X100100 MG PO; -PROVENTIL0.09 MG/A1 IH; -SEROQUEL XR150 MG PO
[2021-03-16 19:28] LABS: BASO # 0.02 K/mm3 (0.02-0.10); EOS # 0.25 K/mm3 (0.04-0.40); EOS % 3.6 % (1.0-5.0); HEMATOCRIT 40.1 % (37.0-47.0); LYMPH# 1.99 K/mm3 (1.50-4.00); MEAN CELL VOLUME 96 fl (78-100); MEAN CORPUSCULAR HEMOGLOBIN 29 pg (27-31); MEAN CORPUSCULAR HGB CONC 30 g/dL (33-37); MEAN PLATELET VOLUME 9.3 fl (7.4-10.4); MONO # 0.49 K/mm3 (0.20-0.80); NEU # 4.26 K/mm3 (1.40-6.50); PLATELET COUNT 235 K/mm3 (130-400); RED BLOOD COUNT 4.17 M/mm3 (4.10-5.30); RED CELL DISTRIBUTION WIDTH 12.9 % (11.5-14.5)
[2021-03-16] MEDS ORDERED: AMLODIPINE BESY1 T14 PO (19:35)
[2021-03-16] MEDS ORDERED: PROVENTIL0.09 MG/A1 IH (19:36)
[2021-03-16] MEDS ORDERED: APRESOLINE 25MG25 MG PO (19:36)
[2021-03-16] MEDS ORDERED: LITHIUM CARBON300 M3 PO (19:37)
[2021-03-16 19:39] LABS: POTASSIUM 4.4 mmol/L (3.5-5.1); SODIUM 142 mmol/L (136-145)
[2021-03-16] MEDS ORDERED: SEROQUEL XR150 MG PO (19:39)
[2021-03-16 19:41] LABS: CALCIUM 9.1 mg/dL (8.3-10.5)
[2021-03-16 19:42] LABS: GLUCOSE 123 mg/dL (65-105); TOTAL PROTEIN 6.6 g/dL (6.2-8.1)
[2021-03-16 19:43] LABS: CARBON DIOXIDE 26 mmol/L (23-31)
[2021-03-16 19:44] LABS: TOTAL BILIRUBIN 0.5 mg/dL (0.2-1.2)
[2021-03-16 19:47] LABS: AST-SGOT 13 U/L (5-34)
[2021-03-16 19:50] LABS: ALT/SGPT < 6 U/L (0-55)
[2021-03-16] MEDS ORDERED: MORGIDOX 1X100100 MG PO (20:09)
[2021-03-16 20:46] VITALS: BP 133/81
== END 2021-03-16 20:46 | disposition home or self-care (01) ==
LOC: ED 18:36
PROVIDERS: Nurse Practitioner
DX: J40 Bronchitis, not specified as acute or chronic (principal); J18.9 Pneumonia, unspecified organism; K21.9 Gastro-esophageal reflux disease without esophagitis; F41.1 Generalized anxiety disorder; E03.9 Hypothyroidism, unspecified; Z20.822 Contact with and (suspected) exposure to COVID-19; Z79.890 Hormone replacement therapy; Z79.899 Other long term (current) drug therapy

== ENCOUNTER → 2021-03-24 | Outpatient (CLI) | payer MEDICARE, BC ==
[~2021-03-24] MED LIST changes: +AMLODIPINE BESY1 T14 PO; +APRESOLINE 25MG25 MG PO; +MORGIDOX 1X100100 MG PO; +PROVENTIL0.09 MG/A1 IH; +SEROQUEL XR150 MG PO
== END ==
LOC: RAD 15:15
DX: J18.9 Pneumonia, unspecified organism (principal)

== ENCOUNTER → 2021-04-29 | Outpatient (CLI) | payer MEDICARE, BC ==
[2021-04-29 22:44] LABS: FOLATE (FOLIC ACID) 16.4 ng/mL (2.0-20.0)
== END ==
LOC: LAB 13:16
PROVIDERS: Psychiatry & Neurology Vascular Neurology
DX: Z13.29 Encounter for screening for other suspected endocrine disorder (principal); D64.9 Anemia, unspecified; E03.4 Atrophy of thyroid (acquired); G25.81 Restless legs syndrome

== ENCOUNTER → 2021-07-02 | Outpatient (CLI) | payer MEDICARE, BC | LOC: RAD 15:25 | DX: M47.26 Other spondylosis with radiculopathy, lumbar region (principal); M41.86 Other forms of scoliosis, lumbar region; N28.1 Cyst of kidney, acquired ==

== ENCOUNTER → 2021-07-22 | Outpatient (CLI) | payer MEDICARE, BC | LOC: MAMMO 10:00 | DX: Z12.31 Encounter for screening mammogram for malignant neoplasm of breast (principal); Z13.820 Encounter for screening for osteoporosis; M85.852 Other specified disorders of bone density and structure, left thigh; M85.851 Other specified disorders of bone density and structure, right thigh ==

== ENCOUNTER → 2021-07-23 | Outpatient (CLI) | payer MEDICARE, BC ==
[2021-07-23 16:26] LABS: POTASSIUM 5.5 mmol/L (3.5-5.1)
[2021-07-23 16:28] LABS: CALCIUM 9.8 mg/dL (8.3-10.5)
[2021-07-23 16:53] LABS: URINE APPEARANCE HAZY; URINE BILIRUBIN NEGATIVE (NEGATIVE); URINE COLOR YELLOW; URINE GLUCOSE NEGATIVE (NEGATIVE); URINE KETONE TR (NEGATIVE); URINE PROTEIN(semi-quant) 1+ (NEGATIVE); URINE UROBILINOGEN NORMAL (NORMAL)
[2021-07-23 16:54] LABS: URINE BLOOD TRACE (NEGATIVE); URINE LEUKOCYTE ESTERASE 2+ (NEGATIVE); URINE NITRATE NEGATIVE (NEGATIVE); URINE WBC 16-30 /hpf (0-3)
== END ==
LOC: LAB 15:47
PROVIDERS: Internal Medicine
DX: I10 Essential (primary) hypertension (principal); N39.0 Urinary tract infection, site not specified

== ENCOUNTER → 2021-07-24 | Outpatient (CLI) | payer MEDICARE, BC | LOC: RAD 09:48 | DX: R91.1 Solitary pulmonary nodule (principal); I51.7 Cardiomegaly | CPT/HCPCS: Q9967 ==

== ENCOUNTER → 2021-08-18 | Outpatient (CLI) | payer MEDICARE, BC ==
[2021-08-18 12:19] LABS: URINE APPEARANCE CLEAR; URINE BILIRUBIN NEGATIVE (NEGATIVE); URINE BLOOD NEGATIVE (NEGATIVE); URINE COLOR YELLOW; URINE GLUCOSE NEGATIVE (NEGATIVE); URINE KETONE NEGATIVE (NEGATIVE); URINE LEUKOCYTE ESTERASE TRACE (NEGATIVE); URINE NITRATE NEGATIVE (NEGATIVE); URINE PROTEIN(semi-quant) 1+ (NEGATIVE); URINE UROBILINOGEN NORMAL (NORMAL)
[2021-08-18 13:22] LABS: CLUE CELLS NOT OBSERVED (Not Observd)
== END ==
LOC: LAB 11:50
PROVIDERS: Nurse Practitioner Family
DX: L29.2 Pruritus vulvae (principal)
CPT/HCPCS: Q0111

== ENCOUNTER 2021-09-15 18:26 | Emergency (ER) | payer MEDICARE, BC ==
[~2021-09-15] VITALS: Ht 172.7 cm; Wt 83.1 kg
[2021-09-15] MEDS ORDERED: ATARAX 10MG10 MG/TAB PO (18:40)
[2021-09-15] MEDS ORDERED: LORAZEPAM1 M1 PO (18:42)
[2021-09-15 19:45] VITALS: BP 157/82
== END 2021-09-15 19:45 | disposition home or self-care (01) ==
LOC: ED 18:26
DX: F41.9 Anxiety disorder, unspecified (principal); G47.00 Insomnia, unspecified

== ENCOUNTER → 2021-09-24 | Outpatient (CLI) | payer MEDICARE, BC ==
[~2021-09-24] MED LIST changes: +ATARAX 10MG10 MG/TAB PO; +LORAZEPAM1 M1 PO
[2021-09-24 11:32] LABS: BASO # 0.05 K/mm3 (0.02-0.10); EOS # 0.52 K/mm3 (0.04-0.40); EOS % 7.5 % (1.0-5.0); HEMATOCRIT 43.9 % (37.0-47.0); MEAN CELL VOLUME 97 fl (78-100); MEAN CORPUSCULAR HEMOGLOBIN 29 pg (27-31); MEAN CORPUSCULAR HGB CONC 30 g/dL (33-37); MONO # 0.54 K/mm3 (0.20-0.80); NEU # 3.83 K/mm3 (1.40-6.50); PLATELET COUNT 268 K/mm3 (130-400); RED BLOOD COUNT 4.54 M/mm3 (4.10-5.30); RED CELL DISTRIBUTION WIDTH 12.7 % (11.5-14.5)
[2021-09-24 11:55] LABS: ALBUMIN 4.3 g/dL (3.4-4.8); SODIUM 141 mmol/L (136-145)
[2021-09-24 11:56] LABS: CALCIUM 9.8 mg/dL (8.3-10.5)
[2021-09-24 11:58] LABS: GLUCOSE 94 mg/dL (65-105); TOTAL PROTEIN 6.7 g/dL (6.2-8.1)
[2021-09-24 11:59] LABS: CARBON DIOXIDE 28 mmol/L (23-31)
[2021-09-24 12:00] LABS: TOTAL BILIRUBIN 0.4 mg/dL (0.2-1.2)
[2021-09-24 12:03] LABS: AST-SGOT 15 U/L (5-34)
[2021-09-24 12:04] LABS: ALT/SGPT 6 U/L (0-55); MAGNESIUM 2.18 mg/dL (1.60-2.60)
[2021-09-24 12:08] LABS: URINE APPEARANCE HAZY; URINE BILIRUBIN NEGATIVE (NEGATIVE); URINE BLOOD NEGATIVE (NEGATIVE); URINE COLOR YELLOW; URINE GLUCOSE NEGATIVE (NEGATIVE); URINE KETONE NEGATIVE (NEGATIVE); URINE LEUKOCYTE ESTERASE 1+ (NEGATIVE); URINE NITRATE NEGATIVE (NEGATIVE); URINE PROTEIN(semi-quant) NEGATIVE (NEGATIVE); URINE UROBILINOGEN NORMAL (NORMAL)
[2021-09-24 14:26] LABS: ERYTHROCYTE SEDIMENTATION RATE 6 mm/hr (0-30)
[2021-09-25 15:03] LABS: IMMUNOGLOBULIN E, TOTAL 23 IU/mL (0-100)
== END ==
LOC: LAB 11:14
PROVIDERS: Internal Medicine
DX: F31.81 Bipolar II disorder (principal); N39.0 Urinary tract infection, site not specified; M54.16 Radiculopathy, lumbar region; F42.9 Obsessive-compulsive disorder, unspecified; M15.9 Polyosteoarthritis, unspecified; R05.3 Chronic cough

== ENCOUNTER → 2021-10-12 | Outpatient (CLI) | payer MEDICARE, BC | LOC: RAD 10:47 | DX: J98.11 Atelectasis (principal); J98.4 Other disorders of lung; R91.1 Solitary pulmonary nodule ==

== ENCOUNTER 2021-11-10 09:59 | Emergency (ER) | payer MEDICARE, BC ==
[~2021-11-10] VITALS: Ht 170.2 cm; Wt 80.8 kg
[2021-11-10] MEDS ORDERED: ALPRAZOLAM0.25 MG PO (10:31)
[2021-11-10] MEDS ORDERED: QUETIAPINE FUM100 M1 PO (10:50)
[2021-11-10] MEDS ORDERED: ATORVASTATIN CA20 MG PO (10:53)
[2021-11-10 10:56] LABS: BASO # 0.02 K/mm3 (0.02-0.10); EOS # 0.16 K/mm3 (0.04-0.40); EOS % 1.8 % (1.0-5.0); HEMATOCRIT 40.3 % (37.0-47.0); HEMOGLOBIN 12.3 g/dL (12.5-16.0); LYMPH# 2.01 K/mm3 (1.50-4.00); MEAN CELL VOLUME 94 fl (78-100); MEAN CORPUSCULAR HEMOGLOBIN 29 pg (27-31); MEAN CORPUSCULAR HGB CONC 31 g/dL (33-37); MEAN PLATELET VOLUME 9.5 fl (7.4-10.4); MONO # 0.44 K/mm3 (0.20-0.80); NEU # 6.39 K/mm3 (1.40-6.50); PLATELET COUNT 228 K/mm3 (130-400); RED BLOOD COUNT 4.28 M/mm3 (4.10-5.30); RED CELL DISTRIBUTION WIDTH 12.2 % (11.5-14.5)
[2021-11-10] MEDS ORDERED: APRESOLINE 25MG25 MG PO (10:57)
[2021-11-10] MEDS ORDERED: OCUFLOX OPHTH DR5 ML OD (10:57)
[2021-11-10] MEDS ORDERED: TRAMADOL 50 MG TAB PO (10:58)
[2021-11-10] MEDS ORDERED: MELATONIN5 M6 PO (10:59)
[2021-11-10 11:14] LABS: SODIUM 140 mmol/L (136-145)
[2021-11-10 11:15] LABS: ALBUMIN 4.2 g/dL (3.4-4.8); POTASSIUM 4.8 mmol/L (3.5-5.1)
[2021-11-10 11:16] LABS: CALCIUM 9.9 mg/dL (8.3-10.5)
[2021-11-10 11:18] LABS: GLUCOSE 96 mg/dL (65-105); TOTAL PROTEIN 6.6 g/dL (6.2-8.1)
[2021-11-10 11:19] LABS: CARBON DIOXIDE 27 mmol/L (23-31); TOTAL BILIRUBIN 0.5 mg/dL (0.2-1.2)
[2021-11-10 11:23] LABS: AST-SGOT 16 U/L (5-34)
[2021-11-10 11:26] LABS: LIPASE 7 U/L (8-78)
[2021-11-10 11:28] LABS: ALT/SGPT < 6 U/L (0-55)
[2021-11-10 11:55] LABS: PH-URINE 7.5 (5.0 - 8.0); URINE APPEARANCE CLOUDY; URINE BILIRUBIN NEGATIVE (NEGATIVE); URINE BLOOD NEGATIVE (NEGATIVE); URINE COLOR YELLOW; URINE GLUCOSE NEGATIVE (NEGATIVE); URINE KETONE NEGATIVE (NEGATIVE); URINE LEUKOCYTE ESTERASE TRACE (NEGATIVE); URINE NITRATE NEGATIVE (NEGATIVE); URINE PROTEIN(semi-quant) NEGATIVE (NEGATIVE); URINE UROBILINOGEN NORMAL (NORMAL)
[2021-11-10 13:30] VITALS: BP 144/72
== END 2021-11-10 13:30 | disposition home or self-care (01) ==
LOC: ED 09:59
PROVIDERS: Physician Assistant
DX: K59.00 Constipation, unspecified (principal); Z90.49 Acquired absence of other specified parts of digestive tract; Z20.822 Contact with and (suspected) exposure to COVID-19

== ENCOUNTER 2022-02-11 17:05 | Emergency (ER) | payer MEDICARE, BC ==
[~2022-02-11] VITALS: Ht 167.6 cm; Wt 78.3 kg
[~2022-02-11 17:05] MED LIST changes: +MELATONIN5 M6 PO; +OCUFLOX OPHTH DR5 ML OD
[2022-02-11 18:14] LABS: HEMATOCRIT 44.9 % (37.0-47.0); HEMOGLOBIN 13.6 g/dL (12.5-16.0); MEAN CELL VOLUME 96 fl (78-100); MEAN CORPUSCULAR HEMOGLOBIN 29 pg (27-31); MEAN CORPUSCULAR HGB CONC 30 g/dL (33-37); MEAN PLATELET VOLUME 9.7 fl (7.4-10.4); PLATELET COUNT 297 K/mm3 (130-400); RED BLOOD COUNT 4.68 M/mm3 (4.10-5.30); RED CELL DISTRIBUTION WIDTH 13.1 % (11.5-14.5); WHITE BLOOD COUNT 6.4 K/mm3 (4.8-10.8)
[2022-02-11 18:24] LABS: ALBUMIN 4.6 g/dL (3.4-4.8); POTASSIUM 4.7 mmol/L (3.5-5.1); SODIUM 142 mmol/L (136-145)
[2022-02-11 18:25] LABS: CALCIUM 9.9 mg/dL (8.3-10.5)
[2022-02-11 18:27] LABS: GLUCOSE 172 mg/dL (65-105); TOTAL PROTEIN 7.3 g/dL (6.2-8.1)
[2022-02-11 18:28] LABS: CARBON DIOXIDE 25 mmol/L (23-31); TOTAL BILIRUBIN 0.5 mg/dL (0.2-1.2)
[2022-02-11 18:32] LABS: AST-SGOT 16 U/L (5-34)
[2022-02-11 18:33] LABS: ALT/SGPT 6 U/L (0-55)
[2022-02-11 18:41] LABS: TROPONIN-I < 0.030 ng/mL (<0.030)
[2022-02-11 19:11] LABS: D-DIMER 0.39 mg/L FEU (0.15-0.50)
[2022-02-11 19:41] LABS: PH-URINE 5.5 (5.0 - 8.0); URINE APPEARANCE CLEAR; URINE BILIRUBIN NEGATIVE (NEGATIVE); URINE COLOR YELLOW; URINE GLUCOSE NEGATIVE (NEGATIVE); URINE KETONE NEGATIVE (NEGATIVE); URINE PROTEIN(semi-quant) TRACE (NEGATIVE)
[2022-02-11 19:42] LABS: URINE BLOOD NEGATIVE (NEGATIVE); URINE LEUKOCYTE ESTERASE NEGATIVE (NEGATIVE); URINE NITRATE NEGATIVE (NEGATIVE); URINE UROBILINOGEN NORMAL (NORMAL)
[2022-02-11 20:11] LABS: LYMPHOCYTE 11 % (20-51); MONOCYTE 1 % (3-10); NEUTROPHILS 87 % (42-75)
[2022-02-11 23:30] VITALS: BP 148/106
== END 2022-02-11 23:35 | disposition short-term general hospital (02) ==
LOC: ED 17:05
PROVIDERS: Physician Assistant
DX: R09.02 Hypoxemia (principal); R07.89 Other chest pain; Z20.822 Contact with and (suspected) exposure to COVID-19; Z28.310 Unvaccinated for COVID-19; Z99.81 Dependence on supplemental oxygen
CPT/HCPCS: J2930; Q9967

== ENCOUNTER 2022-02-17 08:00 | Outpatient (RCR) | payer MEDICARE, BC | END 2022-03-17 | disposition still patient (30) | LOC: PT | DX: M54.16 Radiculopathy, lumbar region (principal); M43.17 Spondylolisthesis, lumbosacral region; Z96.89 Presence of other specified functional implants ==

== ENCOUNTER → 2022-05-08 | Outpatient (CLI) | payer MEDICARE, BC ==
[~2022-05-08] MED LIST changes: +BACTRIM DS TAB1 EACH PO; +LITHIUM 30300 MG/CAP; +PRILOSEC 20MG20 MG PO
== END ==
LOC: LAB 12:00
DX: N39.0 Urinary tract infection, site not specified (principal); K59.00 Constipation, unspecified; R10.9 Unspecified abdominal pain

== ENCOUNTER 2022-05-12 08:53 | Emergency (ER) | payer MEDICARE, BC ==
[~2022-05-12] VITALS: Ht 172.7 cm; Wt 80.2 kg
[~2022-05-12 08:53] MED LIST changes: -BACTRIM DS TAB1 EACH PO; -PRILOSEC 20MG20 MG PO
[2022-05-12] MEDS ORDERED: PRILOSEC 20MG20 MG PO (09:06)
[2022-05-12 09:52] LABS: BASO # 0.03 K/mm3 (0.02-0.10); EOS # 0.16 K/mm3 (0.04-0.40); EOS % 2.4 % (1.0-5.0); HEMOGLOBIN 12.2 g/dL (12.5-16.0); LYMPH# 1.39 K/mm3 (1.50-4.00); MEAN CELL VOLUME 95 fl (78-100); MEAN CORPUSCULAR HEMOGLOBIN 28 pg (27-31); MEAN CORPUSCULAR HGB CONC 30 g/dL (33-37); MEAN PLATELET VOLUME 9.5 fl (7.4-10.4); MONO # 0.42 K/mm3 (0.20-0.80); NEU # 4.77 K/mm3 (1.40-6.50); PLATELET COUNT 233 K/mm3 (130-400); RED BLOOD COUNT 4.32 M/mm3 (4.10-5.30); RED CELL DISTRIBUTION WIDTH 13.1 % (11.5-14.5); WHITE BLOOD COUNT 6.8 K/mm3 (4.8-10.8)
[2022-05-12 09:57] LABS: ALBUMIN 4.2 g/dL (3.4-4.8); POTASSIUM 4.2 mmol/L (3.5-5.1)
[2022-05-12 09:59] LABS: TOTAL PROTEIN 6.6 g/dL (6.2-8.1)
[2022-05-12 10:01] LABS: TOTAL BILIRUBIN 0.8 mg/dL (0.2-1.2)
[2022-05-12 11:20] LABS: URINE APPEARANCE CLOUDY; URINE COLOR YELLOW
[2022-05-12 11:21] LABS: URINE BILIRUBIN NEGATIVE (NEGATIVE); URINE BLOOD TRACE (NEGATIVE); URINE GLUCOSE NEGATIVE (NEGATIVE); URINE KETONE 2+ (NEGATIVE); URINE LEUKOCYTE ESTERASE 2+ (NEGATIVE); URINE NITRATE NEGATIVE (NEGATIVE); URINE PROTEIN(semi-quant) TRACE (NEGATIVE); URINE UROBILINOGEN NORMAL (NORMAL)
[2022-05-12] MEDS ORDERED: BACTRIM DS TAB1 EACH PO (11:52)
[2022-05-12 12:21] VITALS: BP 142/85
== END 2022-05-12 12:22 | disposition home or self-care (01) ==
LOC: ED 08:53
PROVIDERS: Family Medicine
DX: N39.0 Urinary tract infection, site not specified (principal); Z20.822 Contact with and (suspected) exposure to COVID-19
CPT/HCPCS: J0696

== ENCOUNTER → 2022-05-27 | Outpatient (CLI) | payer MEDICARE, BC ==
[~2022-05-27] MED LIST changes: +BACTRIM DS TAB1 EACH PO; +PRILOSEC 20MG20 MG PO
== END ==
LOC: RAD 05-20 11:00
DX: J84.9 Interstitial pulmonary disease, unspecified (principal)
CPT/HCPCS: Q9967

== ENCOUNTER → 2022-06-15 | Outpatient (CLI) | payer MEDICARE, BC ==
[2022-06-15 14:14] LABS: URINE APPEARANCE CLEAR; URINE BILIRUBIN NEGATIVE (NEGATIVE); URINE BLOOD NEGATIVE (NEGATIVE); URINE COLOR YELLOW; URINE GLUCOSE NEGATIVE (NEGATIVE); URINE KETONE NEGATIVE (NEGATIVE); URINE LEUKOCYTE ESTERASE 1+ (NEGATIVE); URINE MUCUS PRESENT (NOT PRESENT); URINE NITRATE NEGATIVE (NEGATIVE); URINE PROTEIN(semi-quant) 1+ (NEGATIVE); URINE UROBILINOGEN NORMAL (NORMAL)
== END ==
LOC: LAB 13:14
PROVIDERS: Internal Medicine
DX: R05.3 Chronic cough (principal); F31.81 Bipolar II disorder; M54.16 Radiculopathy, lumbar region; F42.9 Obsessive-compulsive disorder, unspecified; J84.9 Interstitial pulmonary disease, unspecified; G47.33 Obstructive sleep apnea (adult) (pediatric); E03.9 Hypothyroidism, unspecified; E78.2 Mixed hyperlipidemia; M85.80 Other specified disorders of bone density and structure, unspecified site; N39.0 Urinary tract infection, site not specified

== ENCOUNTER 2022-07-07 10:40 | Outpatient (RCR) | payer MEDICARE, BC | END 2022-07-16 | disposition home or self-care (01) | LOC: PT | DX: M62.81 Muscle weakness (generalized) (principal) ==

== ENCOUNTER → 2022-08-06 | Outpatient (CLI) | payer MEDICARE, BC | LOC: LAB 13:57 | DX: N39.0 Urinary tract infection, site not specified (principal) ==

== ENCOUNTER → 2023-02-05 | Outpatient (CLI) | payer MEDICARE, BC ==
[~2023-02-05] MED LIST changes: +ATORVALIQ20 MG/5 ML PO; +DESYREL 100MG100 MG PO; +NEURONTIN300 MG/CAP PO; +PROAIR HFA0.09 MG/AC IH; +VITAMIN D310 MC3 PO
== END ==
LOC: LAB 09:22
DX: J20.9 Acute bronchitis, unspecified (principal); J01.90 Acute sinusitis, unspecified; J02.9 Acute pharyngitis, unspecified; B34.9 Viral infection, unspecified

== ENCOUNTER 2023-02-24 14:00 | Outpatient (RCR) | payer MEDICARE, BC | END 2023-03-17 | disposition home or self-care (01) | LOC: PT | DX: G60.9 Hereditary and idiopathic neuropathy, unspecified (principal); G21.19 Other drug induced secondary parkinsonism ==

== ENCOUNTER → 2023-05-10 | Outpatient (CLI) | payer MEDICARE, BC | LOC: RAD 16:21 | DX: K59.00 Constipation, unspecified (principal) ==

== ENCOUNTER 2023-07-01 19:32 | Emergency (ER) | payer MEDICARE, BC ==
[~2023-07-01 19:32] MED LIST changes: +AMANTADINE100 M1 PO; +CARBIDOPA/LEVOD1 TE1 PO; +CARBIDOPA/LEVODOPA PO; +VITAMIN D325 MC7 PO
[2023-07-01] MEDS ORDERED: Sodium Phosphates Rectal Enema 133 ML BOTTLE RC ONE (20:15)
[2023-07-01] MEDS ORDERED: Bisacodyl 5 MG TAB PO ONE (22:00)
[2023-07-01 22:44] LABS: CALCIUM 9.7 mg/dL (8.3-10.5)
[2023-07-01] MEDS ORDERED: Acetaminophen 325 MG TAB PO ONE (22:45)
[2023-07-01 22:50] LABS: URINE APPEARANCE CLOUDY (CLEAR); URINE COLOR YELLOW (YELLOW); URINE GLUCOSE NEGATIVE (NEGATIVE); URINE KETONE 1+ (NEGATIVE); URINE PROTEIN(semi-quant) NEGATIVE (NEGATIVE)
[2023-07-01 22:51] LABS: URINE BILIRUBIN NEGATIVE (NEGATIVE); URINE BLOOD NEGATIVE (NEGATIVE); URINE LEUKOCYTE ESTERASE 2+ (NEGATIVE); URINE NITRATE NEGATIVE (NEGATIVE); URINE WBC 31-50 /hpf (0-3)
[2023-07-01] MEDS ORDERED: CEPHALEXIN500 M1 PO (23:26)
[2023-07-01 23:27] VITALS: BP 124/84
== END 2023-07-01 23:27 | disposition home or self-care (01) ==
LOC: ED 19:32
PROVIDERS: Family Medicine
DX: K59.00 Constipation, unspecified (principal); N39.0 Urinary tract infection, site not specified; Z90.49 Acquired absence of other specified parts of digestive tract

== ENCOUNTER 2023-09-26 20:03 | Emergency (ER) | payer MEDICARE, BC ==
[~2023-09-26 20:03] MED LIST changes: +CEPHALEXIN500 M1 PO
== END 2023-09-26 23:56 | disposition home or self-care (01) ==
LOC: ED 20:03
DX: F41.9 Anxiety disorder, unspecified (principal)

== ENCOUNTER → 2023-09-30 | Outpatient (REF) | payer MEDICARE, BC | LOC: LAB 16:52 | DX: R30.9 Painful micturition, unspecified (principal) ==

== ENCOUNTER 2023-12-16 11:07 | Outpatient (RCR) | payer MEDICARE, BC | END 2023-12-17 | LOC: PT | DX: G20.A1 Parkinson's disease without dyskinesia, without mention of fluctuations (principal) ==

== ENCOUNTER 2024-01-19 07:01 | Emergency (ER) | payer MEDICARE, BC ==
[~2024-01-19] VITALS: Ht 170.2 cm; Wt 68.6 kg
[2024-01-19 07:27] LABS: BASO # 0.03 K/mm3 (0.02-0.10); EOS # 0.22 K/mm3 (0.04-0.40); EOS % 2.7 % (1.0-5.0); HEMOGLOBIN 11.7 g/dL (12.5-16.0); LYMPH# 1.46 K/mm3 (1.50-4.00); MEAN CELL VOLUME 95 fl (78-100); MEAN CORPUSCULAR HEMOGLOBIN 29 pg (27-31); MEAN CORPUSCULAR HGB CONC 31 g/dL (33-37); MEAN PLATELET VOLUME 9.2 fl (7.4-10.4); MONO # 0.55 K/mm3 (0.20-0.80); NEU # 5.84 K/mm3 (1.40-6.50); PLATELET COUNT 333 K/mm3 (130-400); RED BLOOD COUNT 4.02 M/mm3 (4.10-5.30); WHITE BLOOD COUNT 8.1 K/mm3 (4.8-10.8)
[2024-01-19 08:09] LABS: CALCIUM 10.6 mg/dL (8.3-10.5)
[2024-01-19 08:11] LABS: TOTAL PROTEIN 6.6 g/dL (6.2-8.1)
[2024-01-19 08:12] LABS: TOTAL BILIRUBIN 0.6 mg/dL (0.2-1.2)
[2024-01-19 08:57] VITALS: BP 132/76
== END 2024-01-19 09:27 | disposition home or self-care (01) ==
LOC: ED 07:01
PROVIDERS: Family Medicine
DX: M25.571 Pain in right ankle and joints of right foot (principal); D64.9 Anemia, unspecified; R44.3 Hallucinations, unspecified; R29.6 Repeated falls

== ENCOUNTER 2024-02-15 08:00 | Outpatient (RCR) | payer MEDICARE, BC | END 2024-02-16 14:10 | disposition home or self-care (01) | LOC: PT | DX: G20.A1 Parkinson's disease without dyskinesia, without mention of fluctuations (principal) ==

== ENCOUNTER → 2024-03-06 | Outpatient (CLI) | payer MEDICARE | LOC: MAMMO 15:00 | DX: Z12.31 Encounter for screening mammogram for malignant neoplasm of breast (principal) ==

== ENCOUNTER → 2024-03-06 | Outpatient (CLI) | payer MEDICARE ==
[2024-03-06 17:06] LABS: BASO # 0.02 K/mm3 (0.02-0.10); EOS # 0.19 K/mm3 (0.04-0.40); EOS % 2.7 % (1.0-5.0); HEMATOCRIT 40.1 % (37.0-47.0); LYMPH# 2.05 K/mm3 (1.50-4.00); MEAN CELL VOLUME 95 fl (78-100); MEAN CORPUSCULAR HEMOGLOBIN 28 pg (27-31); MEAN CORPUSCULAR HGB CONC 30 g/dL (33-37); MONO # 0.62 K/mm3 (0.20-0.80); NEU # 4.26 K/mm3 (1.40-6.50); PLATELET COUNT 274 K/mm3 (130-400); RED BLOOD COUNT 4.23 M/mm3 (4.10-5.30); RED CELL DISTRIBUTION WIDTH 13.2 % (11.5-14.5); WHITE BLOOD COUNT 7.2 K/mm3 (4.8-10.8)
[2024-03-06 17:13] LABS: SODIUM 142 mmol/L (136-145)
[2024-03-06 17:14] LABS: ALBUMIN 4.4 g/dL (3.4-4.8)
[2024-03-06 17:15] LABS: CALCIUM 10.4 mg/dL (8.3-10.5)
[2024-03-06 17:16] LABS: GLUCOSE 102 mg/dL (65-105); TOTAL PROTEIN 6.8 g/dL (6.2-8.1)
[2024-03-06 17:17] LABS: CARBON DIOXIDE 26 mmol/L (23-31)
[2024-03-06 17:18] LABS: TOTAL BILIRUBIN 0.3 mg/dL (0.2-1.2)
[2024-03-06 17:21] LABS: AST-SGOT 14 U/L (5-34)
[2024-03-06 17:25] LABS: ALT/SGPT < 6 U/L (0-55)
== END ==
LOC: LAB 16:45
PROVIDERS: Family Medicine
DX: E78.5 Hyperlipidemia, unspecified (principal); E55.9 Vitamin D deficiency, unspecified; I10 Essential (primary) hypertension; E03.9 Hypothyroidism, unspecified; F31.81 Bipolar II disorder